=== PATIENT | male | born 1965 | race Caucasian/White ===

== ENCOUNTER 2018-08-13 16:02 | Emergency (ER) | payer MEDICAID, OTHER, SELFPAY | END 2018-08-13 18:28 | disposition left against medical advice (07) | LOC: ED 18:22 | DX: R22.9 Localized swelling, mass and lump, unspecified (principal); Z53.21 Procedure and treatment not carried out due to patient leaving prior to being seen by health care provider ==

== ENCOUNTER 2020-06-12 13:18 | Emergency (ER) | payer MEDICAID ==
[~2020-06-12] VITALS: Ht 170.2 cm; Wt 54.5 kg
[2020-06-12] MEDS ORDERED: HYDROcodone/APAP 5/325 TABLET PO ONE (14:00)
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
[2020-06-12] MEDS ORDERED: HYDROcodone/APAP 5/325 TABLET ONE (14:05)
[2020-06-12 14:09] VITALS: BP 132/79
--- NOTE | 2020-06-12 14:10 | NUR ---
xr in room meds per mar. as
== END 2020-06-12 14:54 | disposition home or self-care (01) ==
LOC: ED 14:45
DX: S63.522A Sprain of radiocarpal joint of left wrist, initial encounter (principal); E11.9 Type 2 diabetes mellitus without complications; V49.49XA Driver injured in collision with other motor vehicles in traffic accident, initial encounter; Y93.89 Activity, other specified; Y92.410 Unspecified street and highway as the place of occurrence of the external cause; Y99.8 Other external cause status
CPT/HCPCS: 29125; 99283

== ENCOUNTER 2020-07-20 08:10 | Emergency (ER) | payer MEDICAID ==
[~2020-07-20] VITALS: Ht 170.2 cm; Wt 53.7 kg
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
[2020-07-20 09:10] LABS: MEAN CORPUSCULAR HGB CONC 33.5 g/dL (33.2-36.2); MEAN CORPUSCULAR VOLUME 95.4 fL (81-97); MEAN PLATELET VOLUME 8.3 fL (7.4-10.4); PLATELET COUNT 219 x10^3/uL (130-400); RED BLOOD COUNT 5.02 x10^6/uL (4.38-5.82); RED CELL DISTRIBUTION WIDTH 12.8 % (9.4-14.8)
[2020-07-20 09:18] LABS: ALANINE AMINOTRANSFERASE 106 U/L (12-78); ALBUMIN 2.6 g/dL (3.4-5.0); ANION GAP 7 mmol/L (5-15); CALCIUM 8.8 mg/dL (8.5-10.1); CHLORIDE 100 mmol/L (98-107); CREATININE 0.73 mg/dL (0.7-1.3)
[2020-07-20 09:20] LABS: ALKALINE PHOSPHATASE 148 U/L (45-117); BILIRUBIN,TOTAL 1.1 mg/dL (0.2-1.0); TOTAL PROTEIN 7.3 g/dL (6.4-8.2)
[2020-07-20 09:42] LABS: BASOPHILS # (AUTO) 0.03 x10^3/uL (0-0.1); BASOPHILS % (AUTO) 0 % (0-1); EOSINOPHILS # (AUTO) 0.02 x10^3/uL (0-0.4); EOSINOPHILS % (AUTO) 0 % (1-7); LYMPHOCYTES # (AUTO) 1.98 x10^3/uL (1-3.4); LYMPHOCYTES % (AUTO) 10 % (22-44); MD SCAN; MONOCYTES # (AUTO) 0.94 x10^3/uL (0.2-0.8); MONOCYTES % (AUTO) 5 % (2-9); NEUTROPHILS # (AUTO) 16.06 x10^3/uL (1.8-6.8); NEUTROPHILS % (AUTO) 84 % (42-75)
[2020-07-20] MEDS ORDERED: CARBAMIDE PEROXIDE EAR DROPS 6.5%, 15ML EACH EAR ONE (10:00)
[2020-07-20] MEDS ORDERED: CARBAMIDE PEROXIDE EAR DROPS 6.5%, 15ML ONE (10:02)
[2020-07-20 10:03] VITALS: BP 124/89
--- NOTE | 2020-07-20 10:03 | NUR ---
PT RESTING ON GURNEY. NADN. BISWAS.
[2020-07-20 10:06] LABS: HCT (SEDRATE) 47.9 % (39.2-51.8)
[2020-07-20] MEDS ORDERED: CLINDAMYCIN 300 MG CAPSULE ONE (10:14)
--- NOTE | 2020-07-20 10:15 | NUR ---
NEW RX FOR CLEOCIN 900 MG PO. VERIFIED W/ ERP DR. IQBAL WHO STATES HE WANTS THE 900 MG PO DOSE FOR PT. PER PHARMACY OKAY TO GIVE DOSE IF PT DOES NOT HAVE ANY GI ISSUES.
--- NOTE | 2020-07-20 10:16 | NUR ---
SPOKE W/ ERP DR. IQBAL IN REGARDS TO PT'S WBC 19.0 PER ERP NO CONCERNS FOR WBC.
--- NOTE | 2020-07-20 10:28 | NUR ---
EAR IRRIGATION IN PROGRESS. PT TOLERATING WELL.
[2020-07-20] MEDS ORDERED: CLINDAMYCIN 300 MG CAPSULE PO ONE (10:30)
== END 2020-07-20 11:17 | disposition home or self-care (01) ==
LOC: ED 08:31
DX: S82.64XA Nondisplaced fracture of lateral malleolus of right fibula, initial encounter for closed fracture (principal); H70.001 Acute mastoiditis without complications, right ear; H60.91 Unspecified otitis externa, right ear; E10.9 Type 1 diabetes mellitus without complications; I10 Essential (primary) hypertension; V49.29XA Unspecified car occupant injured in collision with other motor vehicles in nontraffic accident, initial encounter; Y93.89 Activity, other specified; Y92.89 Other specified places as the place of occurrence of the external cause; Y99.8 Other external cause status
CPT/HCPCS: 29515; 36415; 70450; 80053; 85025; 85651; 86140; 99285

== ENCOUNTER 2021-05-24 09:40 | Emergency (ER) | payer MEDICAID ==
[~2021-05-24] VITALS: Ht 170.2 cm; Wt 51.3 kg
[2021-05-24] MEDS ORDERED: FLUORESCEIN OPHTHALMIC 1 MG STRIP ONE (10:12)
[2021-05-24] MEDS ORDERED: PROPARACAINE OPHTH 0.5%, 15ML ONE (10:12)
--- NOTE | 2021-05-24 10:59 | NUR ---
Med sent for from pharmacy.
[2021-05-24] MEDS ORDERED: ERYTHROMYCIN OPHTH 0.5%, 1GM LEFTEYE ONE (11:00)
[2021-05-24 11:27] VITALS: BP 143/97
--- NOTE | 2021-05-24 11:33 | NUR ---
Pt states he's mad, when this RN commented that his HR is much higher than triage. Will let MD Grimm know of VS prior to d/c.
--- NOTE | 2021-05-24 11:48 | NUR ---
BREAK RN: PT STATES HE IS GETTING ANXIOUS AND WANTS TO LEAVE TO TAKE HIS MEDICATIONS. PT LEFT WITH DC INSTRUCTIONS, AMBULATED TO DC DESK.
== END 2021-05-24 11:50 | disposition home or self-care (01) ==
LOC: ED 10:04
DX: H10.32 Unspecified acute conjunctivitis, left eye (principal); E11.9 Type 2 diabetes mellitus without complications; F17.200 Nicotine dependence, unspecified, uncomplicated
CPT/HCPCS: 99283